=== PATIENT | male | born 1940 | race Caucasian/White ===

== ENCOUNTER 2018-01-01 11:24 | Day surgery (SDC) | payer MEDICARE, BC ==
[2018-01-01] VITALS (467 sets, daily range): BP systolic 131–165; BP diastolic 66–921; PULSE 76–812; TEMP 97.5–98.2; O2SAT 89–100
[~2018-01-01] VITALS: Ht 175.3 cm; Wt 87.0 kg
[~2018-01-01 11:24] MED LIST: ASPIRIN 32325 MG/TAB PO; LIPITOR 40MG TA40 MG PO; LIPITOR 80MG80 MG PO; MELAT3MGTAB; PRILOSEC 20MG20 MG PO; PRINIVIL10 MG PO
[2018-01-01 12:06] LABS: HEMATOCRIT 44.8 % (42.0-52.0); HEMOGLOBIN 14.8 g/dl (13.5-18.0); MEAN CELL VOLUME 90 fl (80.0-100.0); MEAN CORPUSCULAR HEMOGLOBIN 30 pg (27.0-31.0); MEAN CORPUSCULAR HGB CONC 33 g/dl (33.0-37.0); MEAN PLATELET VOLUME 8.7 fl (7.4-10.4); PLATELET COUNT 263 K/mm3 (130-400); RED BLOOD COUNT 4.96 M/mm3 (4.20-5.60); REDCELL DISTRIBUTION WIDTH-CV 13.2 % (11.5-14.5)
[2018-01-01] MEDS ORDERED: LIPITOR 80MG80 MG PO (12:09)
[2018-01-01] MEDS ORDERED: ASPI325T6 PO (12:11)
[2018-01-01 12:13] LABS: INR 1.1 (0.8-3.0); PROTHROMBIN TIME 12.8 SECONDS (9.7-12.8)
[2018-01-01 12:16] LABS: CALCIUM 9.1 mg/dL (8.4-10.2); CREATININE, serum 0.99 mg/dL (0.66-1.25); POTASSIUM 4.4 mmol/L (3.4-5.0)
[2018-01-02] VITALS (506 sets, daily range): BP systolic 117–173; BP diastolic 58–106; PULSE 78–90; TEMP 98.1–98.3; O2SAT 93–100
[2018-01-02 06:01] LABS: BASO % 0.5 % (0.0-2.0); EOS # 0.4 (0.0-0.7); GRAN # 4.9 (1.4-6.5); GRAN % 61.4 % (42.2-75.2); HEMATOCRIT 42.3 % (42.0-52.0); HEMOGLOBIN 14.2 g/dl (13.5-18.0); LYMPH # 2.1 (1.2-3.4); LYMPH % 26.2 % (20.0-51.0); MEAN CELL VOLUME 89 fl (80.0-100.0); MEAN CORPUSCULAR HEMOGLOBIN 30 pg (27.0-31.0); MEAN CORPUSCULAR HGB CONC 34 g/dl (33.0-37.0); MEAN PLATELET VOLUME 8.8 fl (7.4-10.4); MONO # 0.5 (0.1-0.6); MONO % 6.5 % (1.7-9.3); PLATELET COUNT 264 K/mm3 (130-400); RED BLOOD COUNT 4.73 M/mm3 (4.20-5.60)
[2018-01-02 06:15] LABS: CALCIUM 8.9 mg/dL (8.4-10.2); CREATININE, serum 0.93 mg/dL (0.66-1.25); POTASSIUM 4.6 mmol/L (3.4-5.0)
[2018-01-02] MEDS ORDERED: PLAVIX 75MG TAB75 MG PO (09:01)
[2018-01-02] MEDS ORDERED: TOPROL XL 25MG25 MG PO (09:01)
[2018-01-02] MEDS ORDERED: PEPCID40 MG PO (09:03)
== END 2018-01-02 13:25 | disposition home or self-care (01) ==
LOC: EUO 11:24 → COL.RAD 11:30 → EDSTATUS 11:30 → ICU 14:13 → EUO 01-02 13:25
PROVIDERS: Internal Medicine Cardiovascular Disease
DX: I63.9 Cerebral infarction, unspecified (principal); I25.10 Atherosclerotic heart disease of native coronary artery without angina pectoris; Z79.02 Long term (current) use of antithrombotics/antiplatelets; Z79.82 Long term (current) use of aspirin; Z95.5 Presence of coronary angioplasty implant and graft; Z88.1 Allergy status to other antibiotic agents; K12.2 Cellulitis and abscess of mouth; R06.02 Shortness of breath; R94.39 Abnormal result of other cardiovascular function study
CPT/HCPCS: OP; C1760; C1764; C1874; C1887; C1894; C9600; J2250; J3010; Q9967

== ENCOUNTER 2018-02-13 08:00 | Outpatient (RCR) | payer MEDICARE, BC ==
[~2018-02-13 08:00] MED LIST changes: +ASPI325T6 PO; +PEPCID40 MG PO; +PLAVIX 75MG TAB75 MG PO; +TOPROL XL 25MG25 MG PO
== END 2018-02-13 11:00 | disposition home or self-care (01) ==
LOC: MKS.ESL.PT 08:00
DX: I69.951 Hemiplegia and hemiparesis following unspecified cerebrovascular disease affecting right dominant side (principal)
CPT/HCPCS: G8987-GO; G8988-GO; G8989-GO; G8990-GP; G8991-GP; G8992-GP; G9162-GN; G9163-GN; G9164-GN

== ENCOUNTER 2022-12-25 09:50 | Observation (INO) | payer MEDICARE, BC ==
[~2022-12-25] VITALS: Ht 25.4 cm; Wt 91.0 kg
[~2022-12-25 09:50] MED LIST changes: -ASPI325T6 PO; +ASPIRIN E.C. 8181 MG PO; -MELAT3MGTAB; +MELATONIN5 M1 SL
[2022-12-25 10:27] LABS: BASO % 0.3 % (0.0-2.0); EOS # 0.3 K/mm3 (0.0-0.7); EOS % 3.9 % (0.0-4.0); GRAN # 4.7 K/mm3 (1.4-6.5); HEMATOCRIT 38.3 % (42.0-52.0); HEMOGLOBIN 12.3 g/dl (13.5-18.0); LYMPH # 1.3 K/mm3 (1.2-3.4); MEAN CELL VOLUME 90 fl (80.0-100.0); MEAN CORPUSCULAR HEMOGLOBIN 29 pg (27-31); MEAN CORPUSCULAR HGB CONC 32 g/dl (33.0-37.0); MEAN PLATELET VOLUME 8.6 fl (7.4-10.4); MONO # 0.4 K/mm3 (0.1-0.6); MONO % 6.2 % (1.7-9.3); PLATELET COUNT 245 K/mm3 (130-400); RED BLOOD COUNT 4.26 M/mm3 (4.20-5.60)
[2022-12-25 10:34] LABS: INR 1.2 (0.8-3.0); PROTHROMBIN TIME 13.9 SECONDS (9.7-12.8)
[2022-12-25 10:36] LABS: PARTIAL THROMBOPLASTIN TIME 30.2 SECONDS (26.0-37.0)
[2022-12-25 10:46] LABS: ALANINE AMINOTRANSFERASE 9 U/L (0-55); ALBUMIN 3.1 gm/dL (3.4-4.8); ALKALINE PHOSPHATASE 76 U/L (40-150); ANION GAP 9 mmol/L (7-16); AST,SGOT 16 U/L (5-34); BILIRUBIN,TOTAL 0.7 mg/dL (0.2-1.2); BLOOD UREA NITROGEN 18 mg/dL (8-26); CALCIUM 8.6 mg/dL (8.4-10.2); CARBON DIOXIDE 23 mmol/L (23-31); CHLORIDE 109 mmol/L (98-107); CREATININE, serum 1.23 mg/dL (0.72-1.25); GLUCOSE 142 mg/dL (70-99); POTASSIUM 3.8 mmol/L (3.5-4.5); SODIUM 141 mmol/L (136-145); TOTAL PROTEIN 6.1 gm/dL (6.2-8.1)
[2022-12-25 10:54] LABS: TROPONIN-I < 0.010 ng/mL (0.00-0.033)
[2022-12-25 15:30] VITALS: BP 145/76; PULSE 77; TEMP 97.3
--- NOTE | 2022-12-25 15:49 | NUR ---
PT SITTING UP IN BED, RESP ARE EVEN AND EASY. SKIN IS PK, WARM AND INTACT.
[2022-12-25] MEDS ORDERED: LIPITOR 40MG TA40 MG PO (16:06)
[2022-12-25] MEDS ORDERED: COZAAR100 MG PO (16:07)
[2022-12-25] MEDS ORDERED: MASON NATURAL2000 IU PO (16:08)
[2022-12-25] MEDS ORDERED: THE MEDICINE S200 M2 PO (16:09)
[2022-12-25] MEDS ORDERED: FLOMAX 0.40.4 MG/CAP PO (16:10)
[2022-12-25 16:32] VITALS: BP 145/76; PULSE 77; TEMP 97.3
--- NOTE | 2022-12-25 18:55 | NUR ---
Heparin IV stopped at 1845 r/t lab results.
[2022-12-25 21:03] LABS: PARTIAL THROMBOPLASTIN TIME 93.1 SECONDS (26.0-37.0)
[2022-12-25 21:11] VITALS: BP 126/67; PULSE 81; TEMP 98.1
--- NOTE | 2022-12-26 02:05 | NUR ---
PATIENT IS AOX4 AND LAYING SUPINE IN BED. HE WAS GIVEN HIS NIGHT TIME MEDICATIONS. PLACED HIS CPAP ON FOR BEDTIME. HEP GTT RESTARTED AFTER A RECHECK OF XA-0.76. HEPARIN GTT GOING AT 14.5 NOW, RECHECK AROUND 0330. STILL NEEDING A UA HE IS CURRENTLY ASLEEP AND HAS NOT URINATED. BED IN LOWEST POSITION. CALL LIGHT IN REACH.
[2022-12-26 03:31] LABS: BASO % 0.6 % (0.0-2.0); EOS # 0.3 K/mm3 (0.0-0.7); EOS % 4.7 % (0.0-4.0); GRAN # 4.2 K/mm3 (1.4-6.5); GRAN % 59.1 % (42.2-75.2); HEMOGLOBIN 11.6 g/dl (13.5-18.0); LYMPH # 2.1 K/mm3 (1.2-3.4); LYMPH % 28.9 % (20.0-51.0); MEAN CELL VOLUME 89 fl (80.0-100.0); MEAN CORPUSCULAR HEMOGLOBIN 29 pg (27-31); MEAN CORPUSCULAR HGB CONC 33 g/dl (33.0-37.0); MEAN PLATELET VOLUME 8.6 fl (7.4-10.4); MONO # 0.4 K/mm3 (0.1-0.6); MONO % 6.1 % (1.7-9.3); PLATELET COUNT 257 K/mm3 (130-400); RED BLOOD COUNT 3.97 M/mm3 (4.20-5.60); REDCELL DISTRIBUTION WIDTH-CV 12.8 % (11.5-14.5)
[2022-12-26 03:32] LABS: HEMATOCRIT 35.3 % (42.0-52.0)
[2022-12-26 03:48] LABS: ALBUMIN 2.6 gm/dL (3.4-4.8); CALCIUM 8.3 mg/dL (8.4-10.2); CREATININE, serum 1.28 mg/dL (0.72-1.25); MAGNESIUM 1.7 mg/dL (1.6-2.6); PHOSPHOROUS 3.3 mg/dL (2.3-4.7); POTASSIUM 4.1 mmol/L (3.5-4.5)
--- NOTE | 2022-12-26 04:09 | NUR ---
THIS NURSE WAS NOTIFIED BY LAB THAT HE HAD A CRITICAL XA LAB OF 0.96, WILL FOLLOW [facility]OT[facility] FOR HEPARIN DRIP.
--- NOTE | 2022-12-26 04:14 | NUR ---
HEPARIN GTT STOPPED AND LABS RECHECK SET FOR ONE HOUR.
[2022-12-26 04:16] VITALS: BP 130/75; PULSE 95; TEMP 97.8
--- NOTE | 2022-12-26 05:14 | NUR ---
HEPARING GTT RESTARTED AT 0515 AT A RATE OF 12 FROM 14.5. NEXT XA WILL AROUND 1110.
[2022-12-26 08:00] VITALS: BP 153/82; PULSE 100; TEMP 98.2
[2022-12-26] MEDS ORDERED: ELIQUIS 5MG PO (08:37)
[2022-12-26] MEDS ORDERED: NORCO 325 MG-51 TAB PO (08:43)
[2022-12-26] MEDS ORDERED: PROTONIX 40MG T40 MG PO (08:43)
--- NOTE | 2022-12-26 08:45 | NUR ---
SW met with the patient to discuss discharge plan. The patient lives in [place] with his , Federica (ph#[phone]). He reports independence with ADLs and has a cane and walker available, if needed. He has a CPAP he obtained from [facility]. The patient's PCP is Dr. Margarito Fall and he receives his medications from [facility]. The patient does not have a DPOA-HC in EMR, but he states that he does have one completed and that it designates his . The patient plans to return home with his upon discharge. No additional needs at this time. *Discharge plan: home with *
[2022-12-26 11:49] LABS: INR 1.4 (0.8-3.0); PROTHROMBIN TIME 15.6 SECONDS (9.7-12.8)
[2022-12-26 11:58] LABS: CALCIUM 8.9 mg/dL (8.4-10.2); CREATININE, serum 1.25 mg/dL (0.72-1.25); POTASSIUM 3.7 mmol/L (3.5-4.5)
[2022-12-26 12:03] VITALS: BP 150/71; PULSE 100; TEMP 97.5
--- NOTE | 2022-12-26 13:25 | NUR ---
Initial visit: Pt was standing up and waiting for his meds with his by his side. Pt has no needs right now. Pt and appreciated the visit. Car Shakeout Operator will follow up as needed.
[2022-12-26 15:35] VITALS: BP 135/71; PULSE 74; TEMP 97.5
[2022-12-26 16:32] VITALS: TEMP 97.9
--- NOTE | 2022-12-26 16:46 | NUR ---
PATIENT IS AXOX4. JERARDO COMPLETE. POST OPP VITALS ARE STABLE. SHOULD DISCHARGE THIS EVENING AFTER CARDIOLOGY FOLLOWS UP WITH THE PATIENT.
--- NOTE | 2022-12-26 16:49 | NUR ---
PATIENT IS STABLE. VSS. AXOX4. SBAX1. PATIENT TAKES TYLENOL FOR PAIN. STILL GETTING ROCEPHIN ABX AND STERIODS IV PUSH. BE ALARM ON.
[2022-12-29 09:48] LABS: PROTEIN C ACTIVITY 106 % (70-150)
== END 2022-12-26 17:20 | disposition home or self-care (01) ==
LOC: COL.ER 09:50 → MEDICAL 12:07 → EDBEDREQ 15:00 → MEDICAL 12-26 17:20
PROVIDERS: Family Medicine; ADMIT Internal Medicine
DX: I26.99 Other pulmonary embolism without acute cor pulmonale (principal); Z86.73 Personal history of transient ischemic attack (TIA), and cerebral infarction without residual deficits; I10 Essential (primary) hypertension; E78.5 Hyperlipidemia, unspecified; M19.90 Unspecified osteoarthritis, unspecified site; N40.0 Benign prostatic hyperplasia without lower urinary tract symptoms; K22.70 Barrett's esophagus without dysplasia; I34.0 Nonrheumatic mitral (valve) insufficiency; Z79.82 Long term (current) use of aspirin; Z79.899 Other long term (current) drug therapy; Z95.818 Presence of other cardiac implants and grafts
CPT/HCPCS: G0378; J0360; J1644; J2704; J3475; Q9967